=== PATIENT | female | born 1945 | race Caucasian/White ===

== ENCOUNTER 2017-03-10 15:08 | Emergency (ER) | payer MEDICARE, BC ==
--- NOTE | 2017-03-10 16:18 | UC ---
Complaint Female HPI - HPI Summary HPI Summary: Pt presents with urinary symptoms. She tells me that she gets UTIs at least twice a year and this feel the same. Over the last 3 days she has been experiencing urinary pressure, frequency, and a pink tint to her urine. Denies fever, chills, SOB, chest pain, abdominal pain, N/V/D/C, vaginal discharge, or flank pain. Her blood pressure is elevated at today's visit. Denies headache, dizziness, weakness, or vision changes. Has been feeling fine except for the above mentioned urinary symptoms. - History Of Current Complaint Chief Complaint: UCGU Stated Complaint: URINARY COMPLAINT Time Seen by Provider: 03/10/17 16:18 Hx Obtained From: Patient Onset/Duration: Gradual Onset Timing: Constant Severity Initially: Mild Severity Currently: Mild Pain Intensity: 3 Pain Scale Used: 0-10 Numeric - Allergies/Home Medications Allergies/Adverse Reactions: Allergies Allergy/AdvReac Type Severity Reaction Status Date / Time Amoxicillin Allergy Intermediate Rash Verified 03/10/17 15:58 PMH/Surg Hx/FS Hx/Imm Hx Previously Healthy: Yes - Surgical History Surgical History: None - Social History Occupation: Retired Lives: With Family Alcohol Use: None Substance Use Type: None Smoking Status (MU): Never Smoked Tobacco - Immunization History Most Recent Influenza Vaccination: none Review of Systems Constitutional: Negative Respiratory: Negative Cardiovascular: Negative Gastrointestinal: Negative Genitourinary: Hematuria, Frequency, Urgency All Other Systems Reviewed And Are Negative: Yes Physical Exam Triage Information Reviewed: Yes Appearance: Well-Appearing, Well-Nourished Vital Signs: Initial Vital Signs Temp 97.9 F 03/10/17 15:51 Pulse 102 03/10/17 15:51 Resp 17 03/10/17 15:51 BP 172/81 03/10/17 15:51 Pulse Ox 98 03/10/17 15:51 Vital Signs Reviewed: Yes Eyes: Positive: Conjunctiva Clear, Other: - PERRLA. No retinal hemorrhages or cotton wool spots appreciated.. Negative: Conjunctiva Inflamed, Discharge Neck: Positive: Supple, Nontender, No Lymphadenopathy Respiratory: Positive: Chest non-tender, Lungs clear, Normal breath sounds Cardiovascular: Positive: RRR, No Murmur, Pulses Normal Abdomen Description: Positive: Nontender, No Organomegaly, Soft. Negative: CVA Tenderness (R), CVA Tenderness (L), Distended, Guarding Bowel Sounds: Positive: Present Neurological: Positive: Alert, Other: - CN II-XII intact. No focal deficits Psychological: Positive: Age Appropriate Behavior Skin: Negative: rashes Complaint Female Dx - Course Course Of Treatment: POC urine had trace blood today. Will treat clinically and send urine for culture. She tells me she does not have a PCP, I have provided her a list of names to follow up with a PCP regarding her UTIs and elevated blood pressure. - Differential Dx/Diagnosis Differential Diagnosis/HQI/PQRI: Urinary Tract Infection Provider Diagnoses: Urinary frequency. Urinary pressure Discharge - Discharge Plan Condition: Stable Disposition: HOME Prescriptions: Fluconazole [Diflucan 150 MG (NF)] 150 mg PO ONCE #1 tab Sulfamethox/Trimethoprim DS* [Bactrim DS 800/160 TAB*] 1 tab PO BID #6 tab Patient Education Materials: Urinary Tract Infection in Women (ED) Referrals: No Primary Care Phys,NOPCP [Primary Care Provider] - [facility] [Outside] - As Soon As Possible Additional Instructions: If you develop a fever, SOB, chest pain, new or worsening symptoms - please call your PCP or go to the ED. Your blood pressure was high at todays visit. Please see your primary provider within 4 weeks for recheck and re-evaluation.
[2017-03-10 16:44] VITALS: BP 160/90
== END 2017-03-10 16:53 | disposition home or self-care (01) ==
LOC: UCCORT 15:08
DX: R35.0 Frequency of micturition (principal); R39.89 Other symptoms and signs involving the genitourinary system
CPT/HCPCS: 81003; 87086; 99202; G0463